=== PATIENT | female | born 1985 | race Caucasian/White ===

== ENCOUNTER 2021-02-09 14:23 | Emergency (ER) | payer SELFPAY ==
[~2021-02-09 14:23] MED LIST: Iopamidol-370 76% 500 ML 1 ML ONE
[2021-02-09] MEDS ORDERED: Ondansetron PF 4 MG/2 ML Vial ONE (15:23)
[2021-02-09] MEDS ORDERED: Milk Of Magnesia 30 ML UDCUP ONE (15:23)
[2021-02-09] MEDS ORDERED: Lidocaine Viscous Sol 2% 15 ml UD Cup ONE (15:23)
[2021-02-09 15:30] LABS: #Basophils 0.1 thou/uL (0.0-0.2); #Eosinphils 0.2 thou/uL (0.0-0.7); #Lymphocytes 2.4 thou/uL (1.20-3.40); #Monocytes 0.8 thou/uL (0.11-0.59); %Basophils 0.9 % (0.0-1.0); %Eosinophils 2.5 % (0.0-10.0); %Lymphocytes 24.7 % (21.0-51.0); %Monocytes 8.5 % (0.0-10.0); %Neutrophils 63.4 % (42.0-75.0); Hemoglobin 14.5 g/dL (12.0-16.0); Mean Corpuscular HGB CONC 33.7 g/dL (32.0-36.0); Mean Corpuscular Hemoglobin 29.5 pg (27.0-31.0); Mean Corpuscular Volume 87.6 fL (78.0-98.0); Mean Platelet Volume 9.2 fL (7.4-10.4); Platelet Count 237 thou/uL (130-400); RBC Distribution Width 13.8 % (11.5-14.5); Red Blood Cell (RBC) Count 4.91 mill/uL (4.20-5.40); White Blood Cell (WBC) Count 9.5 thou/uL (4.8-10.8)
[2021-02-09 15:51] LABS: ALT (SGPT) 14 U/L (8-55); AST (SGOT) 10 U/L (5-34); Alkaline Phosphatase 64 U/L (40-110); Anion Gap 11 mmol/L (10-20); BUN (Urea Nitrogen) 6 mg/dL (7.0-18.7); Bilirubin, Total 0.3 mg/dL (0.2-1.2); Calc. Creatinine Clearance 0 mL/min (70-130); Calcium 8.5 mg/dL (7.8-10.44); Carbon Dioxide 25 mmol/L (22-29); Chloride 108 mmol/L (98-107); Globulin 2.5 g/dL (2.4-3.5); Glucose 80 mg/dL (70-105); Lipase 21 U/L (8-78); Potassium 4.3 mmol/L (3.5-5.1); Protein, Total 6.5 g/dL (6.0-8.3); Sodium 140 mmol/L (136-145)
[2021-02-09 15:55] LABS: Bilirubin Negative (Negative); Blood, Urine Negative (Negative); Clarity Clear (Clear); Glucose, Urine (Dipstick) Normal (Negative); Ketone, Urine Negative (Negative); Leukocyte Negative Leu/uL (Negative); Nitrite Negative (Negative); Pregnancy Test - Urine (BHCG) Negative (Negative); Pregu Control Background? CLEAR/WHITE (CLR/WHITE); Pregu Control Bar Appear? YES (CONTROL BAR); Protein, Urine (Dipstick) Negative (Neg-Trace); Specific Gravity 1.009 (1.002-1.036); Specific Gravity, Urine 1.009 (1.002-1.036); Urobilinogen Normal mg/dL (Less than 2); pH, Urine 7.5 (5.0-9.0)
[2021-02-09] MEDS ORDERED: Morphine 4 MG/ML VIAL ONE (16:08)
[2021-02-09] MEDS ORDERED: Haloperidol Lactate 5 MG/ML VIAL ONE (17:08)
[2021-02-09] MEDS ORDERED: diphenhydrAMINE 50 MG/ML VIAL ONE (17:08)
== END 2021-02-09 17:50 | disposition home or self-care (01) ==
LOC: ERS 14:23
DX: K31.84 Gastroparesis (principal); R10.13 Epigastric pain; G89.29 Other chronic pain; F17.200 Nicotine dependence, unspecified, uncomplicated
CPT/HCPCS: 36415; 74177; 80053; 81003; 81025; 83690; 84484; 85025; 93005; 96374; 96375; J1200; J1630; J2270; J2405; Q9967

== ENCOUNTER 2022-04-14 10:43 | Outpatient (CLI) | payer BC ==
[2022-04-14 11:34] LABS: #Basophils 0.1 10x3/uL (0.0-0.2); #Eosinphils 0.2 10x3/uL (0.0-0.5); #Monocytes 0.7 10x3/uL (0.0-1.1); #Neutrophils 5.7 10x3/uL (1.5-8.4); %Basophils 0.6 % (0.0-2.0); %Eosinophils 2.3 % (0.0-6.0); %Lymphocytes 29.5 % (18.0-47.0); %Monocytes 7.8 % (0.0-10.0); %Neutrophils 59.4 % (40.0-75.0); Hemoglobin 14.1 g/dL (12.0-15.5); Mean Corpuscular HGB CONC 33.5 g/dL (32.0-36.0); Mean Corpuscular Hemoglobin 27.9 pg (27.0-33.0); Mean Corpuscular Volume 83.2 fl (81.6-98.3); Mean Platelet Volume 10.8 fl (7.4-10.4); Platelet Count 286 10x3/uL (150-450); RBC Distribution Width 14.7 % (11.5-14.5); Red Blood Cell (RBC) Count 5.06 10x6/uL (3.90-5.03); White Blood Cell (WBC) Count 9.5 10x3/uL (3.5-10.5)
[2022-04-14 11:55] LABS: BHCG - Serum Negative (NEGATIVE); Pregs Control Background? CLEAR/WHITE (CLR/WHITE); Pregs Control Bar Appear? YES (CONTROL BAR)
[2022-04-14 12:01] LABS: Anion Gap 8 mmol/L (10-20); BUN (Urea Nitrogen) 8 mg/dL (7.0-18.7); Calc. Creatinine Clearance 0 mL/min (70-130); Calcium 9.6 mg/dL (7.8-10.44); Carbon Dioxide 27 mmol/L (22-29); Chloride 101 mmol/L (98-107); Estimated GFR 114; Glucose 94 mg/dL (70-105); Potassium 4.2 mmol/L (3.5-5.1); Sodium 132 mmol/L (136-145)
== END 2022-04-14 10:44 | disposition home or self-care (01) ==
LOC: LABBT 10:43
PROVIDERS: ATTEND Surgery
DX: Z01.812 Encounter for preprocedural laboratory examination (principal); K44.9 Diaphragmatic hernia without obstruction or gangrene
CPT/HCPCS: 80048; 84703; 85025

== ENCOUNTER 2022-04-15 06:15 | Observation (INO) | payer BC ==
[2022-04-15] MEDS ORDERED: Promethazine HCl 25 MG/ML VIAL ONE ×2 (06:40→09:10)
[2022-04-15] MEDS ORDERED: SUGAMMADEX SODIUM 200 MG/2 ML VIAL ONE (06:40)
[2022-04-15] MEDS ORDERED: fentaNYL Citrate/PF 100 MCG/2 ML SYRINGE ONE (06:40)
[2022-04-15] MEDS ORDERED: Bupivacaine/Epinephrine 0.25% 30 ML VIAL ONE (06:55)
[2022-04-15] MEDS ORDERED: Sodium Chloride 0.9% 100 ML ONE (07:20)
[2022-04-15] MEDS ORDERED: CEFAZOLIN 2 GM VIAL ONE (07:20)
[2022-04-15] MEDS ORDERED: Esmolol 100 MG/10 ML VIAL ONE (07:33)
[2022-04-15] MEDS ORDERED: Dexamethasone 20 MG/5 ML VIAL ONE (07:33)
[2022-04-15] MEDS ORDERED: Lidocaine 1% PF 5 ML VIAL ONE (07:33)
[2022-04-15] MEDS ORDERED: PROPOFOL 200 MG/20 ML VIAL ONE (07:33)
[2022-04-15] MEDS ORDERED: Ondansetron PF 4 MG/2 ML Vial ONE (07:33)
[2022-04-15] MEDS ORDERED: Rocuronium Bromide 10 MG/ML (10ML VIAL) ONE (07:33)
[2022-04-15] MEDS ORDERED: Lidocaine 1% (PF) 30 ML VIAL ONE (08:03)
[2022-04-15] MEDS ORDERED: Fentanyl 100 MCG/2 ML VIAL ONE ×2 (09:08→09:46)
[2022-04-15] MEDS ORDERED: Dextrose 5% in Water 1,000 ML IV PRN (09:08)
[2022-04-15] MEDS ORDERED: Meperidine HCl/PF 25 MG/ML VIAL ONE (09:08)
[2022-04-15] MEDS ORDERED: Dextrose 50% Abboject 50 ML SYRINGE SLOW IVP PRN (09:08)
[2022-04-15] MEDS ORDERED: Ondansetron PF 4 MG/2 ML Vial IVP PRN (09:08)
[2022-04-15] MEDS ORDERED: Hydrocodone-Acetamin 15 ML UDCUP PO PRN (09:08)
[2022-04-15] MEDS ORDERED: Promethazine HCl 25 MG/ML VIAL IM PRN ×3 (09:08→12:15)
[2022-04-15] MEDS ORDERED: hydrALAZINE 20 MG/ML VIAL SLOW IVP PRN (09:08)
[2022-04-15] MEDS ORDERED: clonazePAM 1 MG TAB PO PRN (09:08)
[2022-04-15] MEDS ORDERED: Fentanyl 100 MCG/2 ML VIAL SLOW IVP PRN (09:08)
[2022-04-15] MEDS ORDERED: Enoxaparin Sodium 40 MG/0.4 ML SYRINGE SC SCH (09:45)
[2022-04-15] MEDS ORDERED: Pantoprazole 40 MG VIAL IVP SCH (09:45)
[2022-04-15] MEDS ORDERED: HYDROmorphone 2 MG/ML VIAL SLOW IVP PRN (10:03)
[2022-04-15] MEDS ORDERED: Meperidine HCl/PF 25 MG/ML VIAL SLOW IVP PRN (10:03)
[2022-04-15] MEDS ORDERED: Promethazine HCl 25 MG/ML VIAL IVPB PRN (10:03)
[2022-04-15] MEDS ORDERED: Ondansetron HCl/PF 4 MG/2 ML Vial IVP PRN (10:03)
[2022-04-15] MEDS ORDERED: Ketorolac Tromethamine 30 MG/ML VIAL IVP PRN (10:03)
[2022-04-15] MEDS ORDERED: Ketorolac Tromethamine 30 MG/ML VIAL ONE (10:10)
[2022-04-15] MEDS ORDERED: HYDROmorphone 0.5 MG/0.5 ML SYRINGE ONE (11:19)
[2022-04-15] MEDS ORDERED: Fentanyl CADD 100 ML IVPB SCH (12:15)
[2022-04-15] MEDS ORDERED: diphenhydrAMINE 50 MG/ML VIAL IM/IV PRN (12:15)
[2022-04-15] MEDS ORDERED: diphenhydrAMINE 25 MG CAP PO PRN (12:15)
[2022-04-15] MEDS ORDERED: Zolpidem Tartrate 5 MG TAB PO PRN (12:15)
[2022-04-15] MEDS ORDERED: Naloxone HCl 0.4 mg/ml Vial IV PRN (12:15)
[2022-04-15] MEDS ORDERED: D5 1/2 NS w/20 mEq KCL 1,000 ML ONE (12:27)
[2022-04-15] MEDS: D5 1/2 NS w/20 mEq KCL 1,000 ML IV SCH ×2 (12:28→22:11)
[2022-04-15 20:09] VITALS: BMI 33.6
[2022-04-15] MEDS: Ondansetron PF 4 MG/2 ML Vial IVP PRN (22:11)
[2022-04-16] MEDS ORDERED: Fentanyl CADD 100 ML IVPB SCH (00:08)
[2022-04-16] MEDS: D5 1/2 NS w/20 mEq KCL 1,000 ML IV SCH ×2 (05:58→13:57)
[2022-04-16] MEDS: Ondansetron PF 4 MG/2 ML Vial IVP PRN (08:06)
[2022-04-16] MEDS ORDERED: Enoxaparin Sodium 40 MG/0.4 ML SYRINGE SC SCH (09:00)
[2022-04-16] MEDS ORDERED: Pantoprazole 40 MG VIAL IVP SCH (09:00)
[2022-04-16] MEDS ORDERED: Hydrocodone-Acetamin 15 ML UDCUP PO PRN (11:00)
[2022-04-16 12:50] VITALS: BP 107/67; TEMP 97.6
== END 2022-04-16 14:35 | disposition home or self-care (01) ==
LOC: SDC 06:15 → SJJU 09:08 → SDC 18:12 → SJJU 18:12
PROVIDERS: ADMIT Surgery; ATTEND Surgery
PROC: 0DV44ZZ Restriction of Esophagogastric Junction, Percutaneous Endoscopic Approach (ICD-10-PCS; principal; 2022-04-15)
PROC: 8E0W4CZ Robotic Assisted Procedure of Trunk Region, Percutaneous Endoscopic Approach (ICD-10-PCS; 2022-04-15)
DX: K44.9 Diaphragmatic hernia without obstruction or gangrene (principal); K21.9 Gastro-esophageal reflux disease without esophagitis; F17.210 Nicotine dependence, cigarettes, uncomplicated; Z79.899 Other long term (current) drug therapy
CPT/HCPCS: 90471; 90732; 96372; 96374; 96375; 96376; C9113; G0009; G0378; J0690; J1100; J1170; J1650; J1885; J2001; J2175; J2405; J2550; J2704; J3010; J3480; J3490

== ENCOUNTER 2023-05-27 10:03 | Outpatient (CLI) | payer OTHER | END 2023-05-27 10:04 | disposition home or self-care (01) | LOC: DTY/OP 10:03 | PROVIDERS: ATTEND Surgery | DX: E66.01 Morbid (severe) obesity due to excess calories (principal) | CPT/HCPCS: 97802 ==

== ENCOUNTER 2023-07-10 10:00 | Inpatient (IN) | payer OTHER ==
[2023-07-13 14:39] VITALS: BMI 32.1
[2023-07-15] MEDS ORDERED: fentaNYL PF 100 MCG/2 ML SYRINGE ONE (06:47)
[2023-07-15] MEDS ORDERED: Famotidine/PF 20 mg/2ml Vial ONE (06:48)
[2023-07-15] MEDS ORDERED: Dexmedetomidine 200 MCG/2 ML VIAL ONE (06:48)
[2023-07-15] MEDS ORDERED: SUGAMMADEX SODIUM 200 MG/2 ML VIAL ONE (06:48)
[2023-07-15] MEDS ORDERED: Bupivacaine 0.25% HCL 30 ML VIAL ONE (06:51)
[2023-07-15] MEDS ORDERED: Labetalol HCl 100 MG/20 ML VIAL ONE (07:00)
[2023-07-15] MEDS ORDERED: Ondansetron PF 4 MG/2 ML Vial ONE (07:00)
[2023-07-15] MEDS ORDERED: Dexamethasone 20 MG/5 ML VIAL ONE (07:00)
[2023-07-15] MEDS ORDERED: PROPOFOL 200 MG/20 ML VIAL ONE (07:00)
[2023-07-15] MEDS ORDERED: Esmolol 100 MG/10 ML VIAL ONE (07:00)
[2023-07-15] MEDS ORDERED: Ketorolac Tromethamine 30 MG/ML VIAL ONE (07:00)
[2023-07-15] MEDS ORDERED: Lidocaine 1% PF 5 ML VIAL ONE (07:00)
[2023-07-15] MEDS ORDERED: Rocuronium Bromide 10 MG/ML (10ML VIAL) ONE (07:00)
[2023-07-15] MEDS ORDERED: Midazolam HCl 2 mg/2 ml Vial ONE ×2 (07:14→07:18)
[2023-07-15] MEDS ORDERED: Sodium Chloride 0.9% 100 ML ONE (07:26)
[2023-07-15] MEDS ORDERED: CEFAZOLIN 2 GM VIAL ONE (07:26)
[2023-07-15] MEDS ORDERED: Meperidine HCl/PF 25 MG/ML VIAL SLOW IVP PRN (08:21)
[2023-07-15] MEDS ORDERED: HYDROmorphone 2 MG/ML VIAL SLOW IVP PRN (08:21)
[2023-07-15] MEDS ORDERED: Ondansetron HCl/PF 4 MG/2 ML Vial IVP PRN (08:21)
[2023-07-15] MEDS ORDERED: Promethazine HCl 25 MG/ML VIAL IM PRN ×3 (08:21→14:51)
[2023-07-15] MEDS ORDERED: HYDROmorphone 2 MG/ML VIAL ONE (10:20)
[2023-07-15] MEDS ORDERED: diphenhydrAMINE 25 MG CAP PO PRN (11:17)
[2023-07-15] MEDS ORDERED: Naloxone HCl 0.4 mg/ml Vial IV PRN (11:17)
[2023-07-15] MEDS ORDERED: Ondansetron PF 4 MG/2 ML Vial IVP PRN (11:17)
[2023-07-15] MEDS ORDERED: diphenhydrAMINE 50 MG/ML VIAL IVP PRN ×2 (11:17→14:51)
[2023-07-15] MEDS ORDERED: FENTANYL 500 MCG/10 ML VIAL 2,000 MCG in Sodium Chloride 0.9% 60 ML IV PRN (11:17)
[2023-07-15] MEDS ORDERED: diphenhydrAMINE 50 MG/ML VIAL IM PRN (11:17)
[2023-07-15] MEDS ORDERED: fentaNYL 50 mcg/mL 1 mL Vial ONE ×3 (11:23→12:50)
[2023-07-15] MEDS ORDERED: Communication Order-Pharmacy FS SCH (11:30)
[2023-07-15] MEDS ORDERED: HYDROmorphone 0.5 MG/0.5 ML SYRINGE ONE ×2 (11:50→11:56)
[2023-07-15] MEDS ORDERED: D5 1/2 NS w/20 mEq KCL 1,000 ML ONE (14:15)
[2023-07-15] MEDS ORDERED: Dextrose 50% Abboject 50 ML SYRINGE SLOW IVP PRN (14:51)
[2023-07-15] MEDS ORDERED: Ipratropium/Albuterol 3 ML NEB NEB PRN (14:51)
[2023-07-15] MEDS ORDERED: clonazePAM 1 MG TAB PO PRN (14:51)
[2023-07-15] MEDS ORDERED: Dextrose 5% in Water 1,000 ML IV PRN (14:51)
[2023-07-15] MEDS ORDERED: Hydrocodone-Acetamin 15 ML UDCUP PO PRN (14:51)
[2023-07-15] MEDS ORDERED: Glucagon 1 MG/ML KIT IM PRN (14:51)
[2023-07-15] MEDS ORDERED: hydrALAZINE 20 MG/ML VIAL SLOW IVP PRN (14:51)
[2023-07-15] MEDS: D5 1/2 NS w/20 mEq KCL 1,000 ML IV SCH (18:05)
[2023-07-15] MEDS: Ondansetron PF 4 MG/2 ML Vial IVP PRN (20:55)
[2023-07-15] MEDS ORDERED: BuPROPion XL 150 MG ER.TAB PO SCH (21:00)
[2023-07-16] MEDS: D5 1/2 NS w/20 mEq KCL 1,000 ML IV SCH ×2 (04:42→08:11)
[2023-07-16] MEDS: Ondansetron PF 4 MG/2 ML Vial IVP PRN (08:27)
[2023-07-16] MEDS ORDERED: Hydrocodone-Acetamin 15 ML UDCUP PO PRN (08:49)
[2023-07-16] MEDS ORDERED: Pantoprazole 40 MG VIAL IVP SCH (09:00)
[2023-07-16 09:28] LABS: #Basophils 0.1 thou/uL (0.0-0.2); #Eosinphils 0.1 thou/uL (0.0-0.7); #Monocytes 1.3 thou/uL (0.11-0.59); %Basophils 0.4 % (0.0-1.0); %Eosinophils 1.1 % (0.0-10.0); %Lymphocytes 20.6 % (21.0-51.0); %Monocytes 9.9 % (0.0-10.0); %Neutrophils 67.6 % (42.0-75.0); Hematocrit 43.3 % (36.0-47.0); Hemoglobin 14.3 g/dL (12.0-16.0); Mean Corpuscular Hemoglobin 29.2 pg (27.0-31.0); Mean Corpuscular Volume 88.4 fl (78.0-98.0); Mean Platelet Volume 10.5 fL (7.4-10.4); Platelet Count 283 10x3/uL (130-400); White Blood Cell (WBC) Count 13.3 10x3/uL (4.8-10.8)
[2023-07-16 09:50] LABS: Anion Gap 12 mmol/L (10-20); BUN (Urea Nitrogen) 6 mg/dL (7.0-18.7); Calc. Creatinine Clearance 158 mL/min (70-130); Calcium 8.8 mg/dL (7.8-10.44); Carbon Dioxide 24 mmol/L (22-29); Chloride 100 mmol/L (98-107); Estimated GFR 113; Glucose 124 mg/dL (70-105); Potassium 3.8 mmol/L (3.5-5.1); Sodium 132 mmol/L (136-145)
[2023-07-16 11:27] VITALS: BP 145/84; TEMP 98.2
== END 2023-07-16 12:00 | disposition home or self-care (01) | DRG 621 ==
LOC: SURG A 07-15 06:09
PROVIDERS: ADMIT Surgery; ATTEND Surgery
PROC: 0D164ZA Bypass Stomach to Jejunum, Percutaneous Endoscopic Approach (ICD-10-PCS; principal; 2023-07-15)
PROC: 8E0W4CZ Robotic Assisted Procedure of Trunk Region, Percutaneous Endoscopic Approach (ICD-10-PCS; 2023-07-15)
DX: E66.01 Morbid (severe) obesity due to excess calories (principal); K21.9 Gastro-esophageal reflux disease without esophagitis; Z68.32 Body mass index [BMI] 32.0-32.9, adult; F32.A Depression, unspecified; G43.909 Migraine, unspecified, not intractable, without status migrainosus; Z98.890 Other specified postprocedural states; Z98.51 Tubal ligation status
CPT/HCPCS: 36415; 80048; 85025; 94760; C9113; J1100; J1170; J1650; J1885; J2250; J2405; J2704; J3010; J3480; J3490; S0020; S0028

== ENCOUNTER 2024-03-15 13:42 | Day surgery (SDC) | payer OTHER, SELFPAY ==
[2024-03-15] MEDS: Sodium Chloride 0.9% 1,000 ML IV SCH (14:15)
[2024-03-15] MEDS: Multivitamins, Adult 10 ML, Thiamine HCl 100 MG in Sodium Chloride 0.9% 1,000 ML IV SCH (14:33)
[2024-03-15] MEDS ORDERED: Ondansetron PF 4 MG/2 ML Vial ONE (14:39)
[2024-03-15] MEDS: Ondansetron PF 4 MG/2 ML Vial IVP PRN (14:40)
[2024-03-15 16:05] VITALS: BP 125/68; TEMP 98
== END 2024-03-15 16:18 | disposition home or self-care (01) ==
LOC: ONC/OP 13:42
PROVIDERS: ATTEND Surgery
DX: E86.0 Dehydration (principal)
CPT/HCPCS: 96360; 96375; 99212; G0463; J2405; J3411; J7050